=== PATIENT | female | born 1960 | race Caucasian/White ===

== ENCOUNTER → 2018-05-24 | Day surgery (SDC) | payer OTHER ==
[~2018-05-24] MED LIST: ASPIRIN LOW DOS81 MG PO; BIOTIN5 MG PO; BUPROPION XL300 MG PO; CYMBALTA60 MG PO; DEPLIN; DEXILANT60 MG; FEMHRT 0.5 MG-1 EACH PO; FENTANYL CITRATE/PF 100MCG/2 ML INJ ONE; HYOSCYAMINE SULFATE 0.5 MG/ML INJ ONE; L-THYROXINE; LEVOTHYROXINE50 MCG PO; LINZESS PO; LYRICA 50MG50 MG; MAGNESIUM250 MG PO; MIDAZOLAM HCL 5MG/ML 2ML VIAL ONE; MOVE FREE; ONDANSETRON ODT8 MG PO; PRAVASTATIN SOD20 MG PO; PRISTIQ ER100 MG; PROPOFOL IV EMULSION 10 MG/ML 50 ML VIAL ONE; ROPINIROLE HCL1 MG PO; TRAZADONE; TRAZODONE HCL150 MG PO; VISION PLUS LU1 EACH PO; VITAMIN D-32000 UNIT PO; VITAMIN D35000 UNI1 PO; WELLBUTRIN75 MG PO; Z FOLIC ACID PO; Z.0.CYMBALTA20 MG PO; Z.0.LEVOTHYROXINE100; Z.0.PRAVASTATIN SOD2 PO; Z.0.TRICOR145 MG PO; [UNRECOGNIZED DRUG - OTHER]; [UNRECOGNIZED DRUG - OTHER]; [UNRECOGNIZED DRUG - OTHER] PO
--- OUTSIDE RECORDS SUMMARY | 2018-05-24 07:36 | XMS REPORT ---
Author Author [facility] Address Unknown Phone Unavailable Care Team Providers Care Emblem Maker Name Role Phone Unavailable Unavailable Payers Payer Name Policy Type Policy Number Effective Date Expiration Date Problems This patient has no known problems. Allergies, Adverse Reactions, Alerts Allergy Name Allergy Type Status Severity Reaction(s) Onset Date Inactive Date Treating Clinician Comments No Known Allergies DA Active U 2014-07-14 00:00:00 Medications This patient has no known medications.
--- NOTE | 2018-05-24 11:49 | Operative Report ---
DATE OF PROCEDURE: May 24, 2018 REFERRING PHYSICIAN: Dr. Dennis Koehler PROCEDURES PERFORMED 1. Esophagogastroduodenoscopy with esophageal dilatation and biopsies. 2. Colonoscopy with polypectomy. INDICATIONS FOR EGD: Dysphagia, nausea. INDICATIONS FOR COLONOSCOPY: History of numerous colon polyps, surveillance colonoscopy. MEDICATION: Patient was done under MAC. Please see anesthesiologist's note. PROCEDURE: With the patient in the left lateral decubitus position, the flexible fiberoptic Olympus gastroscope was introduced into the esophagus under direct visualization without any difficulty. There was some patchy erythema noted in the distal esophagus. Approximately 4-mm nodule was noted at the GE junction, and that was biopsied. Esophagus was then dilated to size 52-Gabonese Baer. The scope was then advanced with ease into the stomach, and there was some patchy nodularity noted in the antrum. Some patchy areas of erythema and low-grade to moderate edema were noted, and biopsies were obtained. Pylorus appeared to be of normal contour and shape. It was intubated with ease, and the scope was advanced all the way to the 2nd portion of the duodenum. Biopsies were obtained from the proximal 2nd portion and the duodenal bulb to rule out sprue. The scope was then withdrawn back into the stomach and retroflexed. Mucosa overlying the fundus and cardia appeared to be within normal limits. The scope was then straightened out. It was subsequently withdrawn. Patient tolerated the procedure well. IMPRESSION 1. Distal esophagitis, mild. 2. Approximately 4-mm nodule at gastroesophageal junction, biopsied. 3. Esophagus dilated to size 52-Gabonese Baer. 4. Gastritis, nodular, antrum, biopsied. 5. Rule out sprue. PLAN: Follow up histology. Continue Dexilant 60 mg 1 p.o. q.a.m. a.c. The patient was then turned around. After adequate lubrication of the anal canal, a flexible fiberoptic Olympus colonoscope was inserted into the rectum with ease and advanced all the way to the cecum. The scope was then withdrawn slowly. The mucosa overlying the cecum appeared to be within normal limits. One polyp was hot biopsied from the ascending colon. Two polyps were snared and 1 polyp was hot biopsied from the transverse colon. One polyp was hot biopsied and 1 polyp was snared from the descending colon. A single diverticulum was noted. Five polyps were hot biopsied from the sigmoid colon. The rectum appeared to be within normal limits. The scope was then retroflexed into the distal rectum, and small internal hemorrhoids were noted, none of which was actively bleeding. The scope was then straightened out. It was subsequently withdrawn. Patient tolerated the procedure well. IMPRESSION 1. Ascending colon polyp, hot biopsied. 2. Transverse colon polyps, 2 snared and 1 hot biopsied. 3. Descending colon polyps times 2, one snared and one hot biopsied. 4. Diverticulosis, minimal. 5. Sigmoid colon polyps times 5, hot biopsied. 6. Internal hemorrhoids, none actively bleeding. 7. A total of 11 polyps were removed. PLAN: Follow up histology. Initiate high-fiber, low-fat diet. Initiate high-fiber supplement. Patient might benefit from a followup colonoscopy in 1 to 2 years considering the number of polyps removed. Job#: [id number] cc:DENNIS KOEHLER MD
== END | disposition home or self-care (01) ==
LOC: OR 07:34
PROVIDERS: ATTEND Internal Medicine Gastroenterology
DX: Z12.11 Encounter for screening for malignant neoplasm of colon (principal); D12.2 Benign neoplasm of ascending colon; D12.3 Benign neoplasm of transverse colon; D12.5 Benign neoplasm of sigmoid colon; K29.70 Gastritis, unspecified, without bleeding; K20.8 Other esophagitis; K22.8 Other specified diseases of esophagus; K57.30 Diverticulosis of large intestine without perforation or abscess without bleeding; K21.9 Gastro-esophageal reflux disease without esophagitis; K58.9 Irritable bowel syndrome, unspecified; K64.8 Other hemorrhoids; F32.9 Major depressive disorder, single episode, unspecified; F41.9 Anxiety disorder, unspecified; Z01.810 Encounter for preprocedural cardiovascular examination; Z68.32 Body mass index [BMI] 32.0-32.9, adult; Z80.0 Family history of malignant neoplasm of digestive organs
CPT/HCPCS: 43239; 43450; 45384; 45385; 93005; J1980; J2250; 45378

== ENCOUNTER → 2018-06-21 | Outpatient (CLI) | payer OTHER ==
[~2018-06-21] MED LIST changes: -FENTANYL CITRATE/PF 100MCG/2 ML INJ ONE; -HYOSCYAMINE SULFATE 0.5 MG/ML INJ ONE; -MIDAZOLAM HCL 5MG/ML 2ML VIAL ONE; -PROPOFOL IV EMULSION 10 MG/ML 50 ML VIAL ONE
--- NOTE | 2018-06-21 15:37 | Diagnostic Imaging Report ---
Exam: Right hip radiographs 2 views, left hip radiographs 2 views History: Bilateral hip pain. Comparison: None. Findings: There are mild bilateral hip degenerative changes with joint space narrowing. No evidence of fracture or malalignment. Soft tissues are unremarkable. Impression: Mild bilateral hip osteoarthritis. No acute osseous abnormality. Signed by: Dr. Zuleika Morelos MD on 06/21/2018 3:33 PM
== END ==
LOC: RAD 13:22
DX: M25.552 Pain in left hip (principal); M25.551 Pain in right hip
CPT/HCPCS: 73522

== ENCOUNTER 2018-09-19 10:00 | Outpatient (RCR) | payer OTHER | END 2018-09-22 | LOC: PT 10:00 | PROVIDERS: ATTEND Neurological Surgery | DX: M51.27 Other intervertebral disc displacement, lumbosacral region (principal); M62.81 Muscle weakness (generalized); M54.5 Low back pain; M25.552 Pain in left hip; M25.551 Pain in right hip; R26.9 Unspecified abnormalities of gait and mobility ==

== ENCOUNTER 2018-10-07 10:00 | Outpatient (RCR) | payer OTHER | END 2018-10-22 | LOC: PT 10:00 | PROVIDERS: ATTEND Neurological Surgery | DX: M51.27 Other intervertebral disc displacement, lumbosacral region (principal); M54.5 Low back pain; M25.551 Pain in right hip; M25.651 Stiffness of right hip, not elsewhere classified; M62.81 Muscle weakness (generalized); R26.9 Unspecified abnormalities of gait and mobility | CPT/HCPCS: 97139 ==

== ENCOUNTER → 2019-03-24 | Outpatient (RCR) | payer OTHER | LOC: PT 03-05 14:41 | PROVIDERS: ATTEND Specialist | DX: M16.0 Bilateral primary osteoarthritis of hip (principal); M70.62 Trochanteric bursitis, left hip; M70.61 Trochanteric bursitis, right hip ==

== ENCOUNTER 2019-03-31 09:00 | Outpatient (RCR) | payer OTHER | END 2019-04-24 | LOC: PT 09:00 | PROVIDERS: ATTEND Specialist | DX: M16.0 Bilateral primary osteoarthritis of hip (principal); M70.62 Trochanteric bursitis, left hip; M70.61 Trochanteric bursitis, right hip; M62.81 Muscle weakness (generalized); R26.2 Difficulty in walking, not elsewhere classified ==

== ENCOUNTER → 2019-07-21 | Day surgery (SDC) | payer OTHER ==
[~2019-07-21] MED LIST changes: +BIOTIN2500 MCG PO; +FENTANYL CITRATE/PF 100MCG/2 ML INJ ONE; +HYOSCYAMINE 0.125 MG TAB ONE; +MIDAZOLAM HCL 2 MG/2 ML VIAL ONE; -PRISTIQ ER100 MG; +PRISTIQ ER100 MG PO; +PROPOFOL IV EMULSION 10 MG/ML 50 ML VIAL ONE; +TUMERIC PO; +[UNRECOGNIZED DRUG - OTHER] PO
[2019-07-21 12:15] VITALS: BP 146/52
--- NOTE | 2019-07-21 13:26 | Operative Report ---
DATE OF PROCEDURE: 07/21/2019 SURGEON: Joaquin Purdy MD PROCEDURE: Colonoscopy with polypectomy. INDICATIONS FOR COLONOSCOPY: Surveillance colonoscopy, personal history of numerous colon polyps. MEDICATIONS: The patient was done under MAC, please see anesthesiologist's note. PROCEDURE IN DETAIL: With the patient in the left lateral decubitus position, a flexible fiberoptic Olympus colonoscope was introduced into the rectum and advanced all the way to the cecum. One polyp was hot snared from the cecum and additional polyp was hot snared and one polyp was hot biopsied from the ascending colon. Four polyps were hot biopsied and one polyp was hot snared from the transverse colon. Four polyps were hot biopsied from the descending colon. Diverticular disease was noted to involve the distal descending and the sigmoid colon. One polyp was hot biopsied from the sigmoid colon. The rectum appeared to be within normal limits. The scope was then retroflexed into the distal rectum and small internal hemorrhoids were noted, none of which was actively bleeding. The scope was then straightened out, it was subsequently withdrawn, and the patient tolerated the procedure well. A total of 13 polyps were removed. IMPRESSION: 1. Cecal polyp, removed per snare electrocautery. 2. Ascending colon polyps x2, one removed per snare electrocautery and one hot biopsied. 3. Transverse colon polyps x5, one removed per snare electrocautery and four hot biopsied. 4. Descending colon polyps x4, hot biopsied. 5. Diverticulosis. 6. Sigmoid colon polyp x1, hot biopsied. 7. Internal hemorrhoids, none actively bleeding. PLAN: Follow up histology. Initiate high-fiber, low-fat diet. Initiate high-fiber supplement. The patient might benefit from a followup colonoscopy in 2 years. A total of 13 polyps were removed. Joaquin Purdy MD [facility] [place] /[id number] cc: Angus Purdy MD
== END | disposition home or self-care (01) ==
LOC: OR 07:22
PROVIDERS: ATTEND Internal Medicine Gastroenterology
DX: Z09 Encounter for follow-up examination after completed treatment for conditions other than malignant neoplasm (principal); D12.0 Benign neoplasm of cecum; D12.2 Benign neoplasm of ascending colon; D12.3 Benign neoplasm of transverse colon; D12.4 Benign neoplasm of descending colon; D12.5 Benign neoplasm of sigmoid colon; K57.30 Diverticulosis of large intestine without perforation or abscess without bleeding; K64.8 Other hemorrhoids; K21.9 Gastro-esophageal reflux disease without esophagitis; M19.90 Unspecified osteoarthritis, unspecified site; Z01.810 Encounter for preprocedural cardiovascular examination
CPT/HCPCS: 45384; 45385; 93005; J2250; J2704; J3010; 45378

== ENCOUNTER → 2021-07-18 | Outpatient (CLI) | payer OTHER ==
[~2021-07-18] MED LIST changes: -FENTANYL CITRATE/PF 100MCG/2 ML INJ ONE; -HYOSCYAMINE 0.125 MG TAB ONE; -MIDAZOLAM HCL 2 MG/2 ML VIAL ONE; -PROPOFOL IV EMULSION 10 MG/ML 50 ML VIAL ONE
== END ==
LOC: RAD 15:20
DX: M25.512 Pain in left shoulder (principal); M54.50 Low back pain, unspecified; M25.552 Pain in left hip; M25.551 Pain in right hip
CPT/HCPCS: 72110; 73522

== ENCOUNTER → 2022-02-06 | Day surgery (SDC) | payer OTHER ==
[~2022-02-06] MED LIST changes: +AZO BLADDER CO300 MG PO; +BENADRYL25 M1 PO; +DICLOFENAC SOD100 MG PO; +DICYCLOMINE HCL10 MG PO; +FAMOTIDINE20 MG PO; +FENTANYL CITRATE/PF 100MCG/2 ML INJ ONE; +HYOSCYAMINE SULFATE 0.5 MG/ML INJ ONE; +LIDOCAINE HCL 2% LOCAL INJ 5 ML SDV VIAL INJ ONE; +METOCLOPRAMIDE HCL 10 MG/2ML VIAL ONE; +MIDAZOLAM HCL 2 MG/2 ML VIAL ONE; +PROPOFOL IV EMULSION 10 MG/ML 20 ML VIAL ONE; +PROTONIX20 MG PO; +TRIBENZOR 40-51 EACH PO
[2022-02-06 09:25] VITALS: BP 113/71
[2022-02-09 06:12] LABS: ENDOMYSIAL ANTIBODIES, IGA Negative (Negative)
== END | disposition home or self-care (01) ==
LOC: OR 06:22
PROVIDERS: ATTEND Internal Medicine Gastroenterology
DX: K29.60 Other gastritis without bleeding (principal); D12.2 Benign neoplasm of ascending colon; D12.3 Benign neoplasm of transverse colon; K20.90 Esophagitis, unspecified without bleeding; K63.89 Other specified diseases of intestine; K57.30 Diverticulosis of large intestine without perforation or abscess without bleeding; K21.9 Gastro-esophageal reflux disease without esophagitis; K64.8 Other hemorrhoids; D72.820 Lymphocytosis (symptomatic); I10 Essential (primary) hypertension; E03.9 Hypothyroidism, unspecified; E78.5 Hyperlipidemia, unspecified; F32.A Depression, unspecified; Z01.810 Encounter for preprocedural cardiovascular examination; Z01.812 Encounter for preprocedural laboratory examination; Z20.822 Contact with and (suspected) exposure to COVID-19; Z79.899 Other long term (current) drug therapy; Z68.32 Body mass index [BMI] 32.0-32.9, adult; Z80.0 Family history of malignant neoplasm of digestive organs
CPT/HCPCS: 0223U; 36415; 43239; 45380; 82784; 83516; 86256; 93005; C9113; J1980; J2001; J2250; J2704; J2765; J3010; 45378; 45385

== ENCOUNTER 2025-02-18 14:24 | Emergency (ER) | payer MEDICARE, OTHER ==
[~2025-02-18] VITALS: Ht 172.7 cm; Wt 81.2 kg
[~2025-02-18 14:24] MED LIST changes: -FENTANYL CITRATE/PF 100MCG/2 ML INJ ONE; -HYOSCYAMINE SULFATE 0.5 MG/ML INJ ONE; -LIDOCAINE HCL 2% LOCAL INJ 5 ML SDV VIAL INJ ONE; -METOCLOPRAMIDE HCL 10 MG/2ML VIAL ONE; -MIDAZOLAM HCL 2 MG/2 ML VIAL ONE; -PROPOFOL IV EMULSION 10 MG/ML 20 ML VIAL ONE
[2025-02-18 16:38] LABS: BASOPHILS % 0.3 % (0.0-1.0); EOSINOPHILS % 0.7 % (0.0-6.0); LYMPHOCYTES % 25.7 % (18.0-39.1); MONOCYTES % 6.4 % (4.4-11.3); NEUTROPHILS % 65.7 % (38.7-80.0); RED CELL DISTRIBUTION WIDTH 12.2 % (11.7-14.4)
[2025-02-18 17:08] LABS: EST GLOMERULAR FILTRATION RATE 25.0 ML/MIN (>=60)
[2025-02-18 18:45] LABS: LEUKOCYTE ESTERASE ,URINE SMALL (NEGATIVE); PROTEIN,URINE DIPSTICK 1+ (NEGATIVE); URINE UROBILINOGEN 0.2 mg/dL (0.2 - 1)
[2025-02-18 19:01] VITALS: PULSE 74; RESP 16; TEMP 98.8; O2SAT 97
[2025-02-18] MEDS ORDERED: CIPRO500 MG PO (19:12)
[2025-02-18 19:17] LABS: WBC,URINE (MAN) >50 /HPF (0-5)
[2025-02-18 19:18] LABS: EPITHELIAL CELLS,URINE MODERATE /LPF
== END 2025-02-18 19:30 | disposition home or self-care (01) ==
LOC: ER 15:53
DX: N39.0 Urinary tract infection, site not specified (principal); N28.9 Disorder of kidney and ureter, unspecified; I10 Essential (primary) hypertension; E03.9 Hypothyroidism, unspecified; E78.5 Hyperlipidemia, unspecified; F32.A Depression, unspecified
CPT/HCPCS: 36415; 70450; 80053; 81001; 85025; 93005; 99284